=== PATIENT | male | born 1965 | race Caucasian/White ===

== ENCOUNTER 2019-02-09 17:23 | Observation (INO) | payer SELFPAY ==
[2019-02-09] MEDS ORDERED: Sodium Chloride 0.9% 1,000 ML IV ONE ×3 (17:37→21:24)
[2019-02-09] MEDS ORDERED: Ondansetron 4 MG/2 ML SDV IVPUSH ONE (17:38)
--- NOTE | 2019-02-09 18:00 | EDM.PDOC ---
<Juani Monreal - Last Filed: 02/09/19 19:17> ED HPI GENERAL MEDICAL PROBLEM - General Chief Complaint: General Stated Complaint: UNKNOWN Time Seen by Provider: 02/09/19 17:29 Source of Information: Reports: Patient History Limitations: Reports: No Limitations - History of Present Illness INITIAL COMMENTS - FREE TEXT/NARRATIVE: HISTORY AND PHYSICAL: History of present illness: Patient is a 53-year-old man who presents for dehydration, overheating, and dizziness. He reports that he has been working outside since 8am in 80 degree F weather and has not drank any water since this morning. Just prior to arrival he started feeling dizzy and nauseated. He had one episode of emesis and one episode of diarrhea and states he does not remember much of what happened after that. He states that he felt exhausted and just wanted to sleep. His co-worker brought him to the ED. Patient is reporting that he now has generalized muscle cramps all over and a headache. His last known void was this morning. Patient denies fever, chills, chest pain, shortness of breath, or cough. Denies neck stiff ness, change in vision, syncope, or near syncope. Denies abdominal pain, constipation, or dysuria. Has not noted any blood in urine or stool. Review of systems: As per history of present illness and below otherwise all systems reviewed and negative. Past medical history: As per history of present illness and as reviewed below otherwise noncontributory. Surgical history: As per history of present illness and as reviewed below otherwise noncontributory. Social history: See social history for further information Family history: As per history of present illness and as reviewed below otherwise noncontributory. Physical exam: Exam is limited due to body habitus General: Patient is alert, oriented, and in no acute distress. Patient sitting comfortably on exam table. HEENT: Atraumatic, normocephalic, pupils equal and reactive bilaterally, negative for conjunctival pallor or scleral icterus, mucous membranes dry, TMs normal bilaterally, throat clear, neck supple, nontender, trachea midline. No drooling or trismus noted. No meningeal signs. No hot potato voice noted. Lungs: Clear to auscultation, breath sounds equal bilaterally, chest nontender. Heart: S1S2, regular rate and rhythm without overt murmur Abdomen: Soft, nondistended, nontender. Negative for masses or hepatosplenomegaly. Negative for costovertebral tenderness. Pelvis: Stable nontender. Genitourinary: Deferred. Rectal: Deferred. Skin: Intact, warm, dry. No lesions or rashes noted. Extremities: Atraumatic, negative for cords or calf pain. Neurovascular unremarkable. Neuro: Awake, alert, oriented. Cranial nerves II through XII unremarkable. Cerebellum unremarkable. Motor and sensory unremarkable throughout. Exam nonfocal. Notes: Dr. Maldoando verbally involved in patients care and aware of elevated troponin Dr. Rolon consulted. Patient admitted to observation. Voices understanding and is agreeable to plan of care. Denies any further questions or concerns at this time. Diagnostics: CBC, CMP, CK, Head CT, UA, EKG, Cardiac monitoring, CXR, Troponin Therapeutics: 2L NS, Zofran Impression: Heat illness Rhabdomyolysis Elevated Troponin Plan: 1. Admit to observation to Dr. Rolon Back Pain Score (Numeric/FACES): 4 - Related Data Allergies Allergy/AdvReac Type Severity Reaction Status Date / Time Sulfa (Sulfonamide Allergy Hives Verified 02/09/19 17:30 Antibiotics) Past Medical History Cardiovascular History: Reports: Hypertension - Infectious Disease History Infectious Disease History: Reports: None Social & Family History - Family History Family Medical History: Noncontributory - Tobacco Use Smoking Status *Q: Unknown Ever Smoked ED ROS GENERAL - Review of Systems Review Of Systems: See Below ED EXAM, GENERAL - Physical Exam Exam: See Below (see dictation) Course - Vital Signs Last Recorded V/S: Last Vital Signs Temp 36.3 C 02/09/19 19:12 Pulse 96 02/09/19 19:12 Resp 22 H 02/09/19 19:12 BP 139/76 02/09/19 19:12 Pulse Ox 94 L 02/09/19 19:12 - Orders/Labs/Meds Orders: Active Orders 24 hr Category Date Time Status Admission Status [Patient Status] [ADT] Stat ADT 02/09/19 19:20 Active Cardiac Monitoring [RC] . DIRECTED Care 02/09/19 17:37 Active EKG Documentation Completion [RC] STAT Care 02/09/19 17:37 Active Sodium Chloride 0.9% [Normal Saline] 1,000 ml Med 02/09/19 19:15 Active IV .Bolus Medication Orders Sodium Chloride (Normal Saline) 1,000 mls @ 999 mls/hr IV .Bolus ONE Stop: 02/09/19 20:15 Last Admin: 02/09/19 19:18 Dose: 999 mls/hr Labs: Laboratory Tests 02/09/19 02/09/19 02/09/19 Range/Units 17:30 17:30 17:30 WBC 14.19 H (4.0-11.0) K/uL RBC 5.10 (4.50-5.90) M/uL Hgb 15.5 (13.0-17.0) g/dL Hct 44.8 (38.0-50.0) % MCV 87.8 (80.0-98.0) fL MCH 30.4 (27.0-32.0) pg MCHC 34.6 (31.0-37.0) g/dL RDW Std Deviation 41.2 (28.0-62.0) fl RDW Coeff of Louann 13 (11.0-15.0) % Plt Count 244 (150-400) K/uL MPV 10.80 (7.40-12.00) fL Neut % (Auto) 75.7 (48.0-80.0) % Lymph % (Auto) 14.6 L (16.0-40.0) % [place] % (Auto) 9.1 (0.0-15.0) % Eos % (Auto) 0.4 (0.0-7.0) % Baso % (Auto) 0.2 (0.0-1.5) % Neut # (Auto) 10.7 H (1.4-5.7) K/uL Lymph # (Auto) 2.1 (0.6-2.4) K/uL [place] # (Auto) 1.3 H (0.0-0.8) K/uL Eos # (Auto) 0.1 (0.0-0.7) K/uL Baso # (Auto) 0.0 (0.0-0.1) K/uL Nucleated RBC % 0.0 /100WBC Nucleated RBCs # 0 K/uL Sodium 135 L (136-148) mmol/L Potassium 4.1 (3.5-5.1) mmol/L Chloride 98 (98-107) mmol/L Carbon Dioxide 24.6 (21.0-32.0) mmol/L BUN 26 H (7.0-18.0) mg/dL Creatinine 1.5 H (0.8-1.3) mg/dL Est Cr Clr Drug Dosing 57.61 mL/min Estimated GFR (MDRD) 49.1 ml/min Glucose 124 H (74-106) mg/dL Calcium 9.6 (8.5-10.1) mg/dL Total Bilirubin 1.5 H (0.2-1.0) mg/dL AST 33 (15-37) IU/L ALT 52 (14-63) IU/L Alkaline Phosphatase 119 H (46-116) U/L Creatine Kinase 913 H (26-308) U/L Troponin I 0.086 H* (0.000-0.056) ng/mL Total Protein 7.9 (6.4-8.2) g/dL Albumin 4.6 (3.4-5.0) g/dL Globulin 3.3 (2.6-4.0) g/dL Albumin/Globulin Ratio 1.4 (0.9-1.6) Urine Color Urine Appearance Urine pH (5.0-8.0) Ur Specific [place] (1.001-1.035) Urine Protein (NEGATIVE) mg/dL Urine Glucose (UA) (NEGATIVE) mg/dL Urine Ketones (NEGATIVE) mg/dL Urine Occult Blood (NEGATIVE) Urine Nitrite (NEGATIVE) Urine Bilirubin (NEGATIVE) Urine Ictotest Urine Urobilinogen (<2.0) EU/dL Ur Leukocyte Esterase (NEGATIVE) Urine RBC (0-2/HPF) Urine WBC (0-5/HPF) Ur Epithelial Cells (NONE-FEW) Urine Bacteria (NEGATIVE) 02/09/19 Range/Units 18:30 WBC (4.0-11.0) K/uL RBC (4.50-5.90) M/uL Hgb (13.0-17.0) g/dL Hct (38.0-50.0) % MCV (80.0-98.0) fL MCH (27.0-32.0) pg MCHC (31.0-37.0) g/dL RDW Std Deviation (28.0-62.0) fl RDW Coeff of Louann (11.0-15.0) % Plt Count (150-400) K/uL MPV (7.40-12.00) fL Neut % (Auto) (48.0-80.0) % Lymph % (Auto) (16.0-40.0) % [place] % (Auto) (0.0-15.0) % Eos % (Auto) (0.0-7.0) % Baso % (Auto) (0.0-1.5) % Neut # (Auto) (1.4-5.7) K/uL Lymph # (Auto) (0.6-2.4) K/uL [place] # (Auto) (0.0-0.8) K/uL Eos # (Auto) (0.0-0.7) K/uL Baso # (Auto) (0.0-0.1) K/uL Nucleated RBC % /100WBC Nucleated RBCs # K/uL Sodium (136-148) mmol/L Potassium (3.5-5.1) mmol/L Chloride (98-107) mmol/L Carbon Dioxide (21.0-32.0) mmol/L BUN (7.0-18.0) mg/dL Creatinine (0.8-1.3) mg/dL Est Cr Clr Drug Dosing mL/min Estimated GFR (MDRD) ml/min Glucose (74-106) mg/dL Calcium (8.5-10.1) mg/dL Total Bilirubin (0.2-1.0) mg/dL AST (15-37) IU/L ALT (14-63) IU/L Alkaline Phosphatase (46-116) U/L Creatine Kinase (26-308) U/L Troponin I (0.000-0.056) ng/mL Total Protein (6.4-8.2) g/dL Albumin (3.4-5.0) g/dL Globulin (2.6-4.0) g/dL Albumin/Globulin Ratio (0.9-1.6) Urine Color YELLOW Urine Appearance CLEAR Urine pH 6.0 (5.0-8.0) Ur Specific [place] >= 1.030 (1.001-1.035) Urine Protein 30 H (NEGATIVE) mg/dL Urine Glucose (UA) NEGATIVE (NEGATIVE) mg/dL Urine Ketones NEGATIVE (NEGATIVE) mg/dL Urine Occult Blood TRACE-LYSED H (NEGATIVE) Urine Nitrite NEGATIVE (NEGATIVE) Urine Bilirubin SMALL H (NEGATIVE) Urine Ictotest NEGATIVE Urine Urobilinogen 0.2 (<2.0) EU/dL Ur Leukocyte Esterase NEGATIVE (NEGATIVE) Urine RBC 1-2 (0-2/HPF) Urine WBC 0-1 (0-5/HPF) Ur Epithelial Cells RARE (NONE-FEW) Urine Bacteria RARE (NEGATIVE) Meds: Medications Generic Name Dose Route Start Last Admin Trade Name Freq PRN Reason Stop Dose Admin Sodium Chloride 1,000 mls @ 999 mls/hr 02/09/19 19:15 02/09/19 19:18 Normal Saline IV 02/09/19 20:15 999 mls/hr .Bolus ONE Administration Discontinued Medications Generic Name Dose Route Start Last Admin Trade Name Freq PRN Reason Stop Dose Admin Sodium Chloride 1,000 mls @ 999 mls/hr 02/09/19 17:37 02/09/19 17:30 Normal Saline IV 02/09/19 18:37 999 mls/hr BOLUS ONE Administration Ondansetron HCl 4 mg 02/09/19 17:38 02/09/19 18:20 Zofran IVPUSH 02/09/19 17:39 4 mg ONETIME ONE Administration Departure - Departure Time of Disposition: 19:18 Disposition: Refer to Observation Clinical Impression: Elevated troponin Rhabdomyolysis Qualifiers: Rhabdomyolysis type: non-traumatic Qualified Code(s): M62.82 - Rhabdomyolysis Heat exhaustion Qualifiers: Encounter type: initial encounter Qualified Code(s): T67.5XXA - Heat exhaustion , unspecified, initial encounter - Discharge Information - My Orders Last 24 Hours: My Active Orders 02/09/19 17:37 Cardiac Monitoring [RC] . DIRECTED EKG Documentation Completion [RC] STAT 02/09/19 19:15 Sodium Chloride 0.9% [Normal Saline] 1,000 ml IV .Bolus 02/09/19 19:20 Admission Status [Patient Status] [ADT] Stat - Assessment/Plan Last 24 Hours: My Active Orders 02/09/19 17:37 Cardiac Monitoring [RC] . DIRECTED EKG Documentation Completion [RC] STAT 02/09/19 19:15 Sodium Chloride 0.9% [Normal Saline] 1,000 ml IV .Bolus 02/09/19 19:20 Admission Status [Patient Status] [ADT] Stat <Srinivasan,Elizabeth - Last Filed: 02/09/19 19:26> ED HPI GENERAL MEDICAL PROBLEM - History of Present Illness INITIAL COMMENTS - FREE TEXT/NARRATIVE: I have personally seen patient and agree with the above note. Dr. Maldonado was involved in patient care and aware of elevated troponin. Admission to observation to Dr. Rolon. Patient agreeable to plan of care as outlined as above without questions or concerns at time.
--- NOTE | 2019-02-09 18:56 | CR ---
INDICATION: Pain, syncope. Pt states he thinks he had heat exhaustion. Vomiting. CHEST, ONE VIEW An AP radiograph of the chest was performed. Comparison: No previous studies are currently available for comparison. The lungs appear clear and no pleural effusions are identified. The cardiomediastinal silhouette and pulmonary vasculature appear normal, as do the visualized bones aside from left shoulder degenerative and postoperative changes. IMPRESSION: No acute intrathoracic abnormality identified. JEWELL LOPEZ MD [facility] Dictated by: Que Lopez MD @ 02/09/2019 18:54:03 (Electronically Signed)
--- NOTE | 2019-02-09 19:02 | CT ---
INDICATION: Pain, syncope. Patient states he thinks he had heat exhaustion. Vomiting. CT HEAD WITHOUT CONTRAST TECHNIQUE: Multiple axial CT images were performed through the head without intravenous contrast administration. COMPARISON: No previous studies are currently available for comparison. FINDINGS: No acute intracranial hemorrhage is identified. No extra-axial collections are evident and there is no mass effect or midline shift. Ventricles are normal in size and configuration. Brain parenchyma appears normal with unremarkable chavez-white differentiation. Osseous structures are within normal limits and no fractures are seen. Included portions of the paranasal sinuses show postoperative defects in the medial guy of both maxillary sinuses and mild to moderate mucosal thickening in the maxillary, ethmoid, and sphenoid sinuses. The mastoid air cells are normally aerated. IMPRESSION: 1. No intracranial abnormality identified. 2. Paranasal sinus disease as noted above. JEWELL LOPEZ MD [facility] Dictated by Que Lopez MD @ 02/09/2019 6:58:01 PM Dictated by: Que Lopez MD @ 02/09/2019 19:00:18 (Electronically Signed)
--- NOTE | 2019-02-09 21:29 | PCM.HP ---
H&P History of Present Illness - General Date of Service: 02/09/19 Admit Problem/Dx: Admission Diagnosis/Problem Admission Diagnosis/Problem Rhabdomyolysis - History of Present Illness Initial Comments - Free Text/Narative: 53 yo male who presents to the ED because of concerns of heat exahastion. He reported has been working outside on an oil [employer] for 16 hours. When he relized he was dehydrated he started to vomit when he tried drinking water. He reports lightheadedness and generalized weakness. Back Pain Score (Numeric/FACES): 4 - Related Data Allergies/Adverse Reactions: Allergies Allergy/AdvReac Type Severity Reaction Status Date / Time Sulfa (Sulfonamide Allergy Hives Verified 02/09/19 17:30 Antibiotics) Home Medications: Home Meds Atenolol 1 tab PO DAILY 02/09/19 [History] Past Medical History Cardiovascular History: Reports: Hypertension - Infectious Disease History Infectious Disease History: Reports: None Social & Family History - Family History Family Medical History: Noncontributory - Tobacco Use Smoking Status *Q: Never Smoker Second Hand Smoke Exposure: No - Caffeine Use Caffeine Use: Reports: Coffee, Tea - Recreational Drug Use Recreational Drug Use: No H&P Review of Systems - Review of Systems: Review Of Systems: ROS reveals no pertinent complaints other than HPI. Exam - Exam Exam: See Below - Vital Signs Vital Signs: Last Vital Signs Temp 37.1 C 02/09/19 21:00 Pulse 101 H 02/09/19 21:00 Resp 18 02/09/19 21:00 BP 155/79 H 02/09/19 21:00 Pulse Ox 92 L 02/09/19 21:00 Weight: 149.912 kg - Exam General: Alert, Oriented HEENT: Mucosa Moist & [place] Cardiovascular: Regular Rate, Regular Rhythm GI/Abdominal Exam: Soft, Non-Tender Extremities: Non-Tender, No Pedal Edema Skin: Warm, Dry, Intact - Patient Data Lab Results Last 24 hrs: Laboratory Results - last 24 hr 02/09/19 02/09/19 02/09/19 Range/Units 17:30 17:30 17:30 WBC 14.19 H (4.0-11.0) K/uL RBC 5.10 (4.50-5.90) M/uL Hgb 15.5 (13.0-17.0) g/dL Hct 44.8 (38.0-50.0) % MCV 87.8 (80.0-98.0) fL MCH 30.4 (27.0-32.0) pg MCHC 34.6 (31.0-37.0) g/dL RDW Std Deviation 41.2 (28.0-62.0) fl RDW Coeff of Louann 13 (11.0-15.0) % Plt Count 244 (150-400) K/uL MPV 10.80 (7.40-12.00) fL Neut % (Auto) 75.7 (48.0-80.0) % Lymph % (Auto) 14.6 L (16.0-40.0) % [place] % (Auto) 9.1 (0.0-15.0) % Eos % (Auto) 0.4 (0.0-7.0) % Baso % (Auto) 0.2 (0.0-1.5) % Neut # (Auto) 10.7 H (1.4-5.7) K/uL Lymph # (Auto) 2.1 (0.6-2.4) K/uL [place] # (Auto) 1.3 H (0.0-0.8) K/uL Eos # (Auto) 0.1 (0.0-0.7) K/uL Baso # (Auto) 0.0 (0.0-0.1) K/uL Nucleated RBC % 0.0 /100WBC Nucleated RBCs # 0 K/uL Sodium 135 L (136-148) mmol/L Potassium 4.1 (3.5-5.1) mmol/L Chloride 98 (98-107) mmol/L Carbon Dioxide 24.6 (21.0-32.0) mmol/L BUN 26 H (7.0-18.0) mg/dL Creatinine 1.5 H (0.8-1.3) mg/dL Est Cr Clr Drug Dosing 57.61 mL/min Estimated GFR (MDRD) 49.1 ml/min Glucose 124 H (74-106) mg/dL Calcium 9.6 (8.5-10.1) mg/dL Total Bilirubin 1.5 H (0.2-1.0) mg/dL AST 33 (15-37) IU/L ALT 52 (14-63) IU/L Alkaline Phosphatase 119 H (46-116) U/L Creatine Kinase 913 H (26-308) U/L Troponin I 0.086 H* (0.000-0.056) ng/mL Total Protein 7.9 (6.4-8.2) g/dL Albumin 4.6 (3.4-5.0) g/dL Globulin 3.3 (2.6-4.0) g/dL Albumin/Globulin Ratio 1.4 (0.9-1.6) Urine Color Urine Appearance Urine pH (5.0-8.0) Ur Specific [place] (1.001-1.035) Urine Protein (NEGATIVE) mg/dL Urine Glucose (UA) (NEGATIVE) mg/dL Urine Ketones (NEGATIVE) mg/dL Urine Occult Blood (NEGATIVE) Urine Nitrite (NEGATIVE) Urine Bilirubin (NEGATIVE) Urine Ictotest Urine Urobilinogen (<2.0) EU/dL Ur Leukocyte Esterase (NEGATIVE) Urine RBC (0-2/HPF) Urine WBC (0-5/HPF) Ur Epithelial Cells (NONE-FEW) Urine Bacteria (NEGATIVE) 02/09/19 Range/Units 18:30 WBC (4.0-11.0) K/uL RBC (4.50-5.90) M/uL Hgb (13.0-17.0) g/dL Hct (38.0-50.0) % MCV (80.0-98.0) fL MCH (27.0-32.0) pg MCHC (31.0-37.0) g/dL RDW Std Deviation (28.0-62.0) fl RDW Coeff of [place]ann (11.0-15.0) % Plt Count (150-400) K/uL MPV (7.40-12.00) fL Neut % (Auto) (48.0-80.0) % Lymph % (Auto) (16.0-40.0) % [place] % (Auto) (0.0-15.0) % Eos % (Auto) (0.0-7.0) % Baso % (Auto) (0.0-1.5) % Neut # (Auto) (1.4-5.7) K/uL Lymph # (Auto) (0.6-2.4) K/uL [place] # (Auto) (0.0-0.8) K/uL Eos # (Auto) (0.0-0.7) K/uL Baso # (Auto) (0.0-0.1) K/uL Nucleated RBC % /100WBC Nucleated RBCs # K/uL Sodium (136-148) mmol/L Potassium (3.5-5.1) mmol/L Chloride (98-107) mmol/L Carbon Dioxide (21.0-32.0) mmol/L BUN (7.0-18.0) mg/dL Creatinine (0.8-1.3) mg/dL Est Cr Clr Drug Dosing mL/min Estimated GFR (MDRD) ml/min Glucose (74-106) mg/dL Calcium (8.5-10.1) mg/dL Total Bilirubin (0.2-1.0) mg/dL AST (15-37) IU/L ALT (14-63) IU/L Alkaline Phosphatase (46-116) U/L Creatine Kinase (26-308) U/L Troponin I (0.000-0.056) ng/mL Total Protein (6.4-8.2) g/dL Albumin (3.4-5.0) g/dL Globulin (2.6-4.0) g/dL Albumin/Globulin Ratio (0.9-1.6) Urine Color YELLOW Urine Appearance CLEAR Urine pH 6.0 (5.0-8.0) Ur Specific [place] >= 1.030 (1.001-1.035) Urine Protein 30 H (NEGATIVE) mg/dL Urine Glucose (UA) NEGATIVE (NEGATIVE) mg/dL Urine Ketones NEGATIVE (NEGATIVE) mg/dL Urine Occult Blood TRACE-LYSED H (NEGATIVE) Urine Nitrite NEGATIVE (NEGATIVE) Urine Bilirubin SMALL H (NEGATIVE) Urine Ictotest NEGATIVE Urine Urobilinogen 0.2 (<2.0) EU/dL Ur Leukocyte Esterase NEGATIVE (NEGATIVE) Urine RBC 1-2 (0-2/HPF) Urine WBC 0-1 (0-5/HPF) Ur Epithelial Cells RARE (NONE-FEW) Urine Bacteria RARE (NEGATIVE) Result Diagrams: 02/10/19 05:48 02/10/19 05:48 Problem List Initiated/Reviewed/Updated: Yes Orders Last 24hrs: Active Orders 24 hr Category Date Time Status Admission Status [Patient Status] [ADT] Stat ADT 02/09/19 19:20 Active Antiembolic Devices [RC] PER UNIT ROUTINE Care 02/09/19 21:25 Ordered Cardiac Monitoring [RC] . DIRECTED Care 02/09/19 17:37 Active EKG Documentation Completion [RC] STAT Care 02/09/19 17:37 Active Oxygen Therapy [RC] PRN Care 02/09/19 21:24 Ordered Up ad Lisset [RC] ASDIRECTED Care 02/09/19 21:24 Ordered VTE/DVT Education [RC] PER UNIT ROUTINE Care 02/09/19 21:24 Ordered Vital Signs [RC] Q4H Care 02/09/19 21:24 Ordered Regular Diet [DIET] Diet 02/09/19 Breakfast Ordered BASIC METABOLIC PANEL,BMP [CHEM] AM Lab 02/10/19 05:11 Ordered CBC WITH AUTO DIFF [HEME] AM Lab 02/10/19 05:11 Ordered CREATINE KINASE,CK [CHEM] AM Lab 02/10/19 05:11 Ordered TROPONIN I [CHEM] Q6H Lab 02/09/19 23:00 Ordered TROPONIN I [CHEM] Q6H Lab 02/10/19 05:00 Ordered Sodium Chloride 0.9% [Normal Saline] 1,000 ml Med 02/09/19 21:24 Ordered IV .Bolus Sodium Chloride 0.9% [Normal Saline] 1,000 ml Med 02/09/19 21:30 Ordered IV ASDIRECTED Sequential Compression Device [OM.PC] Per Unit Routine Oth 02/09/19 21:25 Ordered Resuscitation Status Routine Resus Stat 02/09/19 21:24 Ordered Medication Orders Sodium Chloride (Normal Saline) 1,000 mls @ 999 mls/hr IV .Bolus ONE Stop: 02/09/19 22:24 Assessment/Plan Comment:: 53 yo male admitted for heat exhaustion, acute kidney injury, dehydration and mild rhabdomyolysis. He was hydrated with IV fluids and monitored overnight on telemetry with no events. His leukocytosis resolved and creatinine normalized. His CPK decreased from 913 to 711. His mildly elevated troponin of 0.086 also normalized. This morning he is feeling well and is requesting discharge. He was discharged home to have follow up with [facility].
[2019-02-10] MEDS: Sodium Chloride 0.9% 1,000 ML IV SCH ×2 (00:11→05:23)
[2019-02-10 06:44] LABS: CHLORIDE,CL 106 mmol/L (98-107); SODIUM,NA 140 mmol/L (136-148)
== END 2019-02-10 12:30 | disposition home or self-care (01) ==
LOC: MW.ED 17:23 → MW.MS 19:25
PROVIDERS: ADMIT Internal Medicine; ATTEND Internal Medicine
DX: M62.82 Rhabdomyolysis (principal); T67.5XXA Heat exhaustion, unspecified, initial encounter; E86.0 Dehydration; N17.9 Acute kidney failure, unspecified; R74.8 Abnormal levels of other serum enzymes; I10 Essential (primary) hypertension; Z88.2 Allergy status to sulfonamides; Z79.899 Other long term (current) drug therapy
CPT/HCPCS: 36415; 70450; 71045; 80048; 80053; 81001; 82550; 84484; 85025; 93005; 96361; 96374; 99285; J2405; J7040; 99284; G0378

== ENCOUNTER 2019-06-10 19:09 | Emergency (ER) | payer BC, OTHER ==
--- NOTE | 2019-06-10 19:21 | EDM.PDOC ---
ED HPI GENERAL MEDICAL PROBLEM - General Chief Complaint: Laceration Stated Complaint: SMASHED FINGER Time Seen by Provider: 06/10/19 19:17 - History of Present Illness INITIAL COMMENTS - FREE TEXT/NARRATIVE: HISTORY AND PHYSICAL: History of present illness: Patient's 53-year-old male presents with concern of acute right hand injury that occurred when he smashed at work with between a pipe and piece of metal he did have gloved hands on denies up-to-date tetanus Review of systems: As per history of present illness and below otherwise all systems reviewed and negative. Past medical history: As per history of present illness and as reviewed below otherwise noncontributory. Surgical history: As per history of present illness and as reviewed below otherwise noncontributory. Social history: No reported history of drug or alcohol abuse. Family history: As per history of present illness and as reviewed below otherwise noncontributory. Physical exam: HEENT: Atraumatic, normocephalic, pupils reactive, negative for conjunctival pallor or scleral icterus, mucous membranes moist, throat clear, neck supple, nontender, trachea midline. Lungs: Clear to auscultation, breath sounds equal bilaterally, chest nontender. Heart: S1S2, regular, negative for clicks, rubs, or JVD. Abdomen: Soft, nondistended, nontender. Negative for masses or hepatosplenomegaly. Negative for costovertebral tenderness. Pelvis: Stable nontender. Genitourinary: Deferred. Rectal: Deferred. Extremities: Right hand has a laceration and somewhat irregular on the volar aspect of the fifth digit near the base is no tendon involvement CMS and neurovascular exams unremarkable with good hemostasis. Neuro: Awake, alert, oriented. Cranial nerves II through XII unremarkable. Cerebellum unremarkable. Motor and sensory unremarkable throughout. Exam nonfocal. Diagnostics: X-ray right hand Therapeutics: Patient was anesthetized with 1% lidocaine without epinephrine irrigated with copious mild 0.9 normal saline prepped and draped concern manner and closed with 4-0 nylon interrupted sutures Tubegauz bacitracin was applied Impression: #1 acute right hand injury with laceration fifth digit Definitive disposition and diagnosis as appropriate pending reevaluation and review of above. - Related Data Allergies Allergy/AdvReac Type Severity Reaction Status Date / Time Sulfa (Sulfonamide Allergy Hives Verified 06/10/19 19:20 Antibiotics) Home Meds: Home Meds Lisinopril 0 mg PO 06/10/19 [History] Past Medical History Cardiovascular History: Reports: Hypertension - Infectious Disease History Infectious Disease History: Reports: None Social & Family History - Family History Family Medical History: Noncontributory - Caffeine Use Caffeine Use: Reports: Coffee, Tea ED ROS GENERAL - Review of Systems Review Of Systems: ROS reveals no pertinent complaints other than HPI. ED EXAM, SKIN/RASH Exam: See Below (See dictation) Course - Vital Signs Last Recorded V/S: Last Vital Signs Temp 35.9 C 06/10/19 19:20 Pulse 89 06/10/19 19:20 Resp 18 06/10/19 19:20 BP 159/88 H 06/10/19 19:20 Pulse Ox 94 L 06/10/19 19:20 - Orders/Labs/Meds Orders: Active Orders 24 hr Category Date Time Status Vaccines to be Administered [RC] PER UNIT ROUTINE Care 06/10/19 19:24 Active Hand Comp Min 3V Rt [CR] Stat Exams 06/10/19 19:23 Taken Meds: Medications Discontinued Medications Generic Name Dose Route Start Last Admin Trade Name Songq PRN Reason Stop Dose Admin Bacitracin 1 dose 06/10/19 19:24 06/10/19 19:40 Bacitracin Oint 1 Gm TOP 06/10/19 19:25 1 dose ONETIME ONE Administration Diphtheria/Tetanus/Acell Pertussis 0.5 ml 06/10/19 19:24 06/10/19 19:39 Adacel IM 06/10/19 19:25 0.5 ml .ONCE ONE Administration Lidocaine HCl 10 ml 06/10/19 19:30 06/10/19 19:40 Xylocaine 1% INJECT 06/10/19 19:31 Not Given ONETIME ONE Lidocaine HCl Confirm 06/10/19 19:34 06/10/19 19:40 Xylocaine-Mpf 1% Administered 06/10/19 19:35 10 ml Dose Administration 10 ml .ROUTE .STK-MED ONE Departure - Departure Time of Disposition: 20:03 Disposition: Home, Self-Care 01 Condition: Good Clinical Impression: Hand injury, Laceration - Discharge Information Forms: ED Department Discharge Additional Instructions: The following information is given to patients seen in the emergency department who are being discharged to home. This information is to outline your options for follow-up care. We provide all patients seen in our emergency department with a follow-up referral. The need for follow-up, as well as the timing and circumstances, are variable depending upon the specifics of your emergency department visit. If you don't have a primary care physician on staff, we will provide you with a referral. We always advise you to contact your personal physician following an emergency department visit to inform them of the circumstance of the visit and for follow-up with them and/or the need for any referrals to a consulting specialist. The emergency department will also refer you to a specialist when appropriate. This referral assures that you have the opportunity for followup care with a specialist. All of these measure are taken in an effort to provide you with optimal care, which includes your followup. Under all circumstances we always encourage you to contact your private physician who remains a resource for coordinating your care. When calling for followup care, please make the office aware that this follow-up is from your recent emergency room visit. If for any reason you are refused follow-up, please contact the [facility] emergency department at and asked to speak to the emergency department charge nurse. Wound care is discussed follow-up for recheck 48 hours suture removal 10-14 days return as needed as discussed - My Orders Last 24 Hours: My Active Orders 06/10/19 19:23 Hand Comp Min 3V Rt [CR] Stat 06/10/19 19:24 Vaccines to be Administered [RC] PER UNIT ROUTINE - Assessment/Plan Last 24 Hours: My Active Orders 06/10/19 19:23 Hand Comp Min 3V Rt [CR] Stat 06/10/19 19:24 Vaccines to be Administered [RC] PER UNIT ROUTINE
[2019-06-10] MEDS ORDERED: Bacitracin Oint 1 GM U/D Packet TOP ONE (19:24)
[2019-06-10] MEDS ORDERED: Diphtheria,Pertussis(Acell),Tetanus Vaccine 0.5 ML Syringe IM ONE (19:24)
[2019-06-10] MEDS ORDERED: Lidocaine 1% 10 ML MDV INJECT ONE (19:30)
--- NOTE | 2019-06-10 20:15 | CR ---
INDICATION: Pain after striking the hand. COMPARISON: None available. TECHNIQUE: The right hand is examined with PA, lateral, and oblique views. FINDINGS: There is no sign of fracture or dislocation. The soft tissues are normal in appearance without sign of radio-opaque foreign body. No significant degenerative disease is seen. IMPRESSION: Normal right hand. Dictated by Marvin Guevara MD @ Jun 10 2019 8:12PM Signed by Dr. Marvin Guevara @ Jun 10 2019 8:13PM
== END 2019-06-10 20:20 | disposition home or self-care (01) ==
LOC: MW.ED 19:09
DX: S61.216A Laceration without foreign body of right little finger without damage to nail, initial encounter (principal); I10 Essential (primary) hypertension; Z79.899 Other long term (current) drug therapy; Z88.2 Allergy status to sulfonamides; Z23 Encounter for immunization; W23.0XXA Caught, crushed, jammed, or pinched between moving objects, initial encounter; Y92.89 Other specified places as the place of occurrence of the external cause; Y99.0 Civilian activity done for income or pay
CPT/HCPCS: 73130-26-RT; 73130-RT; 90471; 90715; 99283-25; J2001